=== PATIENT | female | born 1990 | race Hispanic/Latino ===

== ENCOUNTER 2016-08-15 18:56 | Emergency (ER) | payer MEDICAID ==
[2016-08-15 19:02] VITALS: BMI 34.3
[2016-08-15 19:05] VITALS: BP 112/74; PULSE 97; RESP 18; O2SAT 98
[2016-08-15 19:08] VITALS: TEMP 99
--- NOTE | 2016-08-15 19:15 | ED PDOC ---
Arrival/HPI - General Chief Complaint: ENT Problem Time Seen by Provider: 08/15/16 19:11 Historian: Patient - History of Present Illness Narrative History of Present Illness (Text): 08/15/16 19:12 Patient presents to the emergency room complaining of 4 day history of sore throat associated with 2 day history of tactile fever. Denies any headache, chills, rash, ear pain, URI symptoms, nausea, vomiting, diarrhea, sick contacts , recent travel. Has no other complaints otherwise. Past Medical History - Provider Review Nursing Documentation Reviewed: Yes - Infectious Disease Hx of Infectious Diseases: None - Psychiatric Hx Substance Use: No - Surgical History Other/Comment: 2 vaginal births - Anesthesia Hx Anesthesia: No Family/Social History - Physician Review Nursing Documentation Reviewed: Yes Family/Social History: No Known Family HX Smoking Status: Never Smoked Hx Alcohol Use: No Hx Substance Use: No Allergies/Home Meds Allergies/Adverse Reactions: Allergies No Known Allergies Allergy (Verified 08/15/16 19:02) Review of Systems - Review of Systems Constitutional: Normal, Fatigue, Fevers. absent: Weight Change, Night Sweats ENT: Normal, Sore Throat. absent: Hearing Changes, Rhinorrhea, Sinus Congestion Respiratory: Normal. absent: SOB, Cough, Sputum Cardiovascular: Normal. absent: Chest Pain, Palpitations, Edema Musculoskeletal: Normal. absent: Arthralgias, Back Pain, Neck Pain Skin: Normal. absent: Rash, Pruritis, Skin Lesions Physical Exam - Physical Exam Narrative Physical Exam (Text): 08/15/16 19:13 GENERAL APPEARANCE: Patient is awake, alert, oriented x 3, in no acute distress. SKIN: Warm, dry; (-) cyanosis, (-) rash. (-) Decubitus Ulcer EYES: (-) conjunctival pallor, (-) scleral icterus, (-) conjunctival hemorrhage. ENMT: Mucous membranes moist. TMs: (-) erythema. Airway patent: (-) stridor. Pharynx: (+) erythema, (+) exudate. NECK: (-) tenderness, (-) stiffness, (-) meningismus, (-) lymphadenopathy. CHEST AND RESPIRATORY: (-) accessory muscle use. Lungs: (-) rales, (-) rhonchi, (-) wheezes, (-) rub; breath sounds equal bilaterally. HEART AND CARDIOVASCULAR: (-) irregularity; (-) murmur, (-) gallop, (-) rub. ABDOMEN AND GI: Soft; (-) tenderness, (-) guarding; (-) organomegaly; (-) mass ; (-) CVA tenderness. EXTREMITIES: (-) deformity; (-) cellulitis, (-) lymphangitis; (-) subungual hemorrhage; (-) edema. NEURO AND PSYCH: Mental status as above; (-) focal findings. Vital Signs Temp Pulse Resp BP Pulse Ox 08/15/16 19:08 99.0 F 08/15/16 19:04 97 H 18 112/74 98 Medical Decision Making ED Course and Treatment: 08/15/16 19:14 26-year-old female complaining of sore throat 4 days, with 2 days of fever. On exam, patient is noted to have pharyngitis, will treat as such. Patient medicated with penicillin VK 500 mg by mouth and Motrin 600 mg by mouth. Based on history and exam, plan will be for outpatient follow-up with PMD. Prescription provided. Patient states she fully agrees with and understands discharge instructions. States that she agrees with the plan and disposition. Verbalized and repeated discharge instructions and plan. I have given the patient opportunity to ask any additional questions. Follow up with primary care physician in 1-2 days without fail. Advised to take medication as prescribed. Return to the emergency room at any time for any new or worsening symptoms. 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 Disposition/Present on Arrival - Present on Arrival Any Indicators Present on Arrival: No History of DVT/PE: No History of Uncontrolled Diabetes: No Urinary Catheter: No History of Decub. Ulcer: No History Surgical Site Infection Following: None - Disposition Have Diagnosis and Disposition been Completed?: Yes Diagnosis: Acute pharyngitis Disposition: HOME/ ROUTINE Disposition Time: 19:15 Patient Plan: Discharge Condition: GOOD Discharge Instructions (ExitCare): Pharyngitis (ED) Print Language: MALAGASY Additional Instructions: Thank you for letting us take care of you today. You were treated for fever, pharyngitis. The emergency medical care you received today was directed at your acute symptoms. If you were prescribed any medication, please fill it and take as directed. It may take several days for your symptoms to resolve. Return to the Emergency Department if your symptoms worsen, do not improve, or if you have any other problems. Please contact your doctor in 2 days for re-evaluation and follow up. Bring any paperwork you were given at discharge with you along with any medications you are taking to your follow up visit. Our treatment cannot replace ongoing medical care by a primary care provider (PCP) outside of the emergency department. Thank you for allowing the [facility] team to be part of your care today. Prescriptions: Ibuprofen [Motrin Tab] 600 mg PO QID PRN #20 tab PRN Reason: Pain, Moderate (4-7) Penicillin VK [Pen-Vee K] 500 mg PO QID #20 tab Forms: WORK NOTE
== END 2016-08-15 19:31 | disposition home or self-care (01) ==
LOC: ED 18:56
DX: J02.9 Acute pharyngitis, unspecified (principal)